=== PATIENT | male | born 1960 ===

== ENCOUNTER 2019-07-25 14:30 | Outpatient (CLI) | payer OTHER ==
--- NOTE | 2019-07-25 15:52 | MRI ---
MRI RIGHT SHOULDER WITHOUT CONTRAST: 07/25/19 HISTORY: Pain. COMPARISON: None. FINDINGS: BICEPS TENDON: Moderate extra-articular biceps increased tenosynovial fluid. Intra-articular tendon has high grade t endinosis with interstitial type tearing. LABRUM: Intrasubstance tear of the near entirety of the labrum. ROTATOR CUFF: There is a full thickness tear of the mid and posterior fibers supraspinatus tendon from the footprin t measuring approximately 1 cm in transverse dimension. The anterior fibers have high grade undersurf charly partial tearing and the posterior supraspinatus tendon also has high grade interstitial and under surface partial tearing. There are multiple bursa surface tears throughout the tendon. Extensive fray ing and interstitial type delamination. This propagates to the anterior fibers of the infraspinatus t endon. CARTILAGE: No significant chondrolysis. BONES: Prior subacromial decompression most likely. Mild degenerative disease acromioclavicular joint. Juliette l glenoid conversion. There are a few tendon tissue anchors of the greater tuberosity. MUSCLES: No significant muscle atrophy. SOFT TISSUES: Just deep to the subscapularis tendon, axial image 20, is an area of susceptibility which is somewhat rectangular in shape and may reflect a displaced tendon tissue anchor. IMPRESSION: 1. On axial image 20 is a rectangular shaped area of susceptibility only seen on the axial image s. There is concern that this could be a displaced tendon suture anchor component. 2. Circumferential interstitial substance labral tear. 3. Full thickness tear at the posterior 1 cm fibers of the supraspinatus tendon with extension b ursal and articular surface tearing of the anterior fibers at the footprint as well as at the black and white printer operator ior fibers propagating to the anterior infraspinatus tendon. Extensive interstitial type delaminatio n. 4. Prior surgical decompression with small subacromial subdeltoid bursa effusion due to communic ation of the glenohumeral joint. 5. High grade intra-articular biceps tendinosis and interstitial type tearing. 6. Mildly thickened edematous axillary pouch can be seen with capsulitis in the correct clinica l setting. POS: [facility]
== END 2019-07-25 14:31 | disposition home or self-care (01) ==
LOC: SCSMRI 14:30
PROVIDERS: ATTEND Orthopaedic Surgery
DX: Z47.89 Encounter for other orthopedic aftercare (principal); S43.491A Other sprain of right shoulder joint, initial encounter; M25.411 Effusion, right shoulder; M75.81 Other shoulder lesions, right shoulder; M75.91 Shoulder lesion, unspecified, right shoulder; Z98.890 Other specified postprocedural states